=== PATIENT | female | born 1955 | race Caucasian/White ===

== ENCOUNTER 2017-05-03 10:54 | Inpatient (IN) ==
--- NOTE | 2017-05-03 11:40 | Diag Imaging Result Doc PS360 ---
EXAM: CHEST-PORTABLE HISTORY: stroke like symptoms TECHNIQUE: AP portable at 1136 COMMENT: There are no previous studies. There is an apparent granuloma in the right base. There is no evidence of acute cardiac or pulmonary disease. IMPRESSION: No acute disease. Electronically signed by Jarocho Stahl 05/03/2017 11:38 AM
[2017-05-03 12:34] LABS: URINE CULTURE NEEDED? NO; URINE MICRO REVIEW NEEDED? NO; URINE SOURCE CLEAN CATCH
[2017-05-03 12:39] LABS: BILIRUBIN URINE NEGATIVE (NEGATIVE); BLOOD URINE NEGATIVE (NEGATIVE); COLOR STRAW; GLUCOSE URINE NEGATIVE (NEGATIVE); LEUKOCYTES URINE NEGATIVE (NEGATIVE); NITRITE URINE NEGATIVE (NEGATIVE); PROTEIN URINE NEGATIVE (NEGATIVE); SP GRAVITY URINE 1.004; TURBIDITY URINE CLEAR (CLEAR); UR EPITHELIAL CELLS <10 /HPF (<10); URINE BACTERIA NEGATIVE /HPF; URINE RBC <10 /HPF (<10); URINE WBC <10 /HPF (<10); UROBILINOGEN URINE NORMAL (NORMAL)
--- NOTE | 2017-05-03 12:51 | EKG Report ---
Test Performed on : 05/03/2017 11:06:45 AM Test Reason : Stroke like symptoms Blood Pressure : / mmHG Vent. Rate : 070 BPM Atrial Rate : 070 BPM P-R Int : 120 ms QRS Dur : 086 ms QT Int : 402 ms P-R-T Axes : 039 017 012 degrees QTc Int : 434 ms Normal sinus rhythm. Normal ECG No previous ECGs available Unconfirmed Result
[2017-05-03 12:55] LABS: MANUAL DIFF NEEDED? NO
[2017-05-03 13:10] LABS: INR 0.99; PROTIME 10.4 Seconds (9.2-11.7); PTT 28.6 Seconds (22.0-36.0)
--- NOTE | 2017-05-03 13:12 | Diag Imaging Result Doc PS360 ---
EXAM: HEAD W/O CONTRAST HISTORY: MONTOYA- stroke like symptom TECHNIQUE: Dose reduction protocol COMPARISON: None. FINDINGS: No parenchymal hemorrhage. No epidural or subdural hematoma. No subarachnoid hemorrhage. No mass identified on this noncontrasted exam. No hydrocephalus. No sinus opacification. IMPRESSION: No hemorrhage. Negative brain CT without contrast. Electronically signed by Lobo Mccall 05/03/2017 1:10 PM
[2017-05-03 13:19] LABS: BASO% 0.4 % (0.0-0.8); EOS# 0.23 X1000 (0.0-0.7); EOS% 4.4 % (0.0-10.0); HEMATOCRIT 40.3 % (37.0-47.0); HEMOGLOBIN 13.4 g/dL (12.0-16.0); LYMPH# 1.72 X1000 (1.2-3.4); LYMPH% 33.3 % (20.5-51.1); MCH 29.8 PG (27-31); MCHC 33.3 g/dL (33-37); MCV 89.8 FL (81-99); MONO# 0.46 X1000 (0.11-0.59); MONO% 8.9 % (1.7-9.3); MPV 9.6 FL (7.4-10.4); PLT 249 X1000 (130-400); RBC 4.49 XMIL (4.2-5.4)
[2017-05-03 13:35] LABS: AGAP 11; ALBUMIN 3.8 g/dL (3.5-5.0); ALKALINE PHOSPHATASE 97 U/L (32-104); BUN 15 mg/dL (8-22); CALCIUM 9.4 mg/dL (8.8-10.2); CHLORIDE 107 mmol/L (98-107); COSMO 282; GOT 19 U/L (10-30); GPT 14 U/L (10-36); POTASSIUM 4.1 mmol/L (3.5-5.1); SODIUM 141 mmol/L (136-145); TCO2 23 mmol/L (25-35); TOTAL BILIRUBIN 0.61 mg/dL (0.20-1.00); TOTAL PROTEIN 6.5 g/dL (6.3-8.3)
[2017-05-03 13:43] LABS: UR AMPHETAMINES QUAL NONE DETECTED (NONE DETECT); UR BARBITUATES QUAL NONE DETECTED (NONE DETECT); UR BENZODIAZEPIN QUAL NONE DETECTED (NONE DETECT); UR CANNABINOIDS QUAL NONE DETECTED (NONE DETECT); UR COCAINE QUAL NONE DETECTED (NONE DETECT); UR METHADONE QUAL NONE DETECTED (NONE DETECT); UR OPIATES QUAL NONE DETECTED (NONE DETECT); UR OXYCODONE QUAL NONE DETECTED (NONE DETECT); UR PCP QUAL NONE DETECTED (NONE DETECT)
--- NOTE | 2017-05-03 13:54 | PROVIDER DOCUMENTATION ---
This chart was entered by Caroline Crawford Scribe, acting as scribe for Gilbert Hsu MD. HPI-Neurological Disorder - General Chief Complaint: Stroke-Like Symptoms Stated Complaint: NUMBNESS/CONFUSION Time Seen by Provider: 05/03/17 11:02 Source: patient Allergies/Adverse Reactions: Patient Allergies Allergy/AdvReac Type Severity Reaction Status Date / Time codeine Allergy NAUSEA/VOMI Verified 10/26/16 09:58 TING morphine Allergy NAUSEA/VOMI Verified 10/26/16 09:58 TING Home Medications: Home Medication List Medication Instructions Recorded Confirmed Last Taken Type Benazepril HCl 40 mg PO DAILY 10/17/16 05/03/17 05/02/17 History Gabapentin 1,600 mg PO HS 10/17/16 05/03/17 05/02/17 History Insulin Glargine [Lantus] 10 unit SUBQ DAILY 10/17/16 05/03/17 05/03/17 History Quetiapine Fumarate [Seroquel] 300 mg PO HS 10/17/16 05/03/17 05/02/17 History - History of Present Illness-Neuro Nature of Presenting Problem: 62 yo F presents to the ER with complaint of R sided weakness and feeling unsteady on her feet, onset yesterday. States she has a slight frontal MONTOYA and some intermittent facial numbness for a couple weeks. Denies any vision changes. Headache Location: reports: frontal Onset/Duration: reports: 24 hours ago New weakness or altered sensation location:: reports: RUE, RLE Cognitive Baseline: alert, oriented x3 Gait Baseline: walks without assistance Associated Symptoms: reports: headache, trouble walking. denies: fever/chills, vision changes Review of Systems - Adult - REVIEW OF SYSTEMS - ADULT Constitutional: denies: chills, fever Eyes: reports: no symptoms reported Ears, Nose, Mouth & Throat: reports: no symptoms reported Cardiovascular: denies: chest pain, palpitations Respiratory: denies: cough, shortness of breath Gastrointestinal: denies: diarrhea, nausea, vomiting Genitourinary: reports: no symptoms reported Musculoskeletal: denies: joint pain, joint swelling Integumentary: reports: no symptoms reported Neurological: reports: see HPI, headache/migraines. denies: slurred speech Psychiatric: reports: no symptoms reported Endocrine: reports: no symptoms reported Hematologic/Lymphatic: reports: no symptoms reported Allergic/Immunologic: reports: no symptoms reported All Other Systems: Reviewed and Negative Past History - Adult - PAST MEDICAL HISTORY-ADULT Review of Records: reports: Nursing Assessment Review, Medications Reviewed Cardiovascular: reports: HTN, hyperlipidemia Respiratory: reports: sleep apnea Musculoskeletal: reports: intervertebral disc disease Endocrine/Immune: reports: Diabetes - IMMUNIZATION STATUS Childhood Immunizations: See Nurse Assessment Flu Vaccine: See Nurse Assessment Physical Exam- Neurological - Physical Exam-Neuro Initial Vital Signs Reviewed: Yes General Appearance: alert, no apparent distress Eye Exam: bilateral eye: normal inspection, PERRL, EOMI HENMT: normocephalic/atraumatic, normal ENT inspection, TMs normal, pharynx normal Head Injury: no evidence of injury. negative: tenderness Neck: supple, normal inspection Respiratory: chest non-tender, lungs clear, no respiratory distress, no accessory muscle use Cardiovascular: normal peripheral pulses, regular rate, rhythm Extremity: normal range of motion, non-tender, normal gait, normal inspection server security administrator Exam: normal hearing, normal speech, PERRL Motor/Sensory: no motor deficit, no sensory deficit, no pronator drift, other ( weakness while sitting up) Neurologic: server security administrator II-XII nml as tested, grossly normal, no motor/sensory deficits Integumentary: normal color, warm/dry Psych/Mental Status: normal mood/affect, normal thought content, normal thought process, oriented x 3 Progress - PLAN OF CARE/RESULTS Progress/Plan/Lab Results: Vital Signs - 8 hr 05/03/17 10:57 Temperature 97.7 F Pulse Rate 88 Respiratory Rate 18 Blood Pressure 137/82 O2 Sat by Pulse Oximetry 100 Laboratory Results - last 24 hr 05/03/17 05/03/17 05/03/17 11:43 12:00 12:00 WBC RBC Hgb Hct MCV MCH MCHC RDW Std Deviation Plt Count MPV Neut % (Auto) Lymph % (Auto) Starke % (Auto) Eos % (Auto) Baso % (Auto) Neut # (Auto) Lymph # (Auto) [place] # (Auto) Eos # (Auto) Baso # (Auto) PT INR PTT (Actin FS) Sodium Potassium Chloride Carbon Dioxide Anion Gap BUN Creatinine Estimated GFR/1.73 m2 BUN/Creatinine Ratio Glucose POC Glucose 100 Calculated Osmolality Calcium Total Bilirubin AST ALT Alkaline Phosphatase Troponin T Total Protein Albumin Globulin Albumin/Globulin Ratio Urine Source CLEAN CATCH Urine Color STRAW Urine Turbidity CLEAR Urine pH 6.0 Ur Specific [place] 1.004 Urine Protein NEGATIVE Ur Glucose (Stick) NEGATIVE Ur Ketones (Stick) NEGATIVE Urine Blood NEGATIVE Urine Nitrite NEGATIVE Urine Bilirubin NEGATIVE Urobilinogen Dipstick NORMAL Urine Leukocytes NEGATIVE Urine WBC (Auto) <10 Urine RBC (Auto) <10 U Epithel Cells (Auto) <10 Urine Bacteria (Auto) NEGATIVE Urine Opiates Screen NONE DETECTED Ur Oxycodone Screen NONE DETECTED Ur Methadone, Qual NONE DETECTED Ur Barbiturates Screen NONE DETECTED Ur Phencyclidine Scrn NONE DETECTED Ur Amphetamines Screen NONE DETECTED U Benzodiazepines Scrn NONE DETECTED Urine Cocaine Screen NONE DETECTED U Cannabinoids Screen NONE DETECTED 05/03/17 05/03/17 05/03/17 12:47 12:47 12:47 WBC 5.17 RBC 4.49 Hgb 13.4 Hct 40.3 MCV 89.8 MCH 29.8 MCHC 33.3 RDW Std Deviation 13.2 Plt Count 249 MPV 9.6 Neut % (Auto) 53.0 Lymph % (Auto) 33.3 Starke % (Auto) 8.9 Eos % (Auto) 4.4 Baso % (Auto) 0.4 Neut # (Auto) 2.74 Lymph # (Auto) 1.72 Starke # (Auto) 0.46 Eos # (Auto) 0.23 Baso # (Auto) 0.02 PT 10.4 INR 0.99 PTT (Actin FS) 28.6 Sodium 141 Potassium 4.1 Chloride 107 Carbon Dioxide 23 L Anion Gap 11 BUN 15 Creatinine 0.9 Estimated GFR/1.73 m2 > 60 BUN/Creatinine Ratio 17 Glucose 103 POC Glucose Calculated Osmolality 282 Calcium 9.4 Total Bilirubin 0.61 AST 19 ALT 14 Alkaline Phosphatase 97 Troponin T Total Protein 6.5 Albumin 3.8 Globulin 2.7 Albumin/Globulin Ratio 1.4 Urine Source Urine Color Urine Turbidity Urine pH Ur Specific [place] Urine Protein Ur Glucose (Stick) Ur Ketones (Stick) Urine Blood Urine Nitrite Urine Bilirubin Urobilinogen Dipstick Urine Leukocytes Urine WBC (Auto) Urine RBC (Auto) U Epithel Cells (Auto) Urine Bacteria (Auto) Urine Opiates Screen Ur Oxycodone Screen Ur Methadone, Qual Ur Barbiturates Screen Ur Phencyclidine Scrn Ur Amphetamines Screen U Benzodiazepines Scrn Urine Cocaine Screen U Cannabinoids Screen 05/03/17 12:47 WBC RBC Hgb Hct MCV MCH MCHC RDW Std Deviation Plt Count MPV Neut % (Auto) Lymph % (Auto) [place] % (Auto) Eos % (Auto) Baso % (Auto) Neut # (Auto) Lymph # (Auto) [place] # (Auto) Eos # (Auto) Baso # (Auto) PT INR PTT (Actin FS) Sodium Potassium Chloride Carbon Dioxide Anion Gap BUN Creatinine Estimated GFR/1.73 m2 BUN/Creatinine Ratio Glucose POC Glucose Calculated Osmolality Calcium Total Bilirubin AST ALT Alkaline Phosphatase Troponin T < 0.010 Total Protein Albumin Globulin Albumin/Globulin Ratio Urine Source Urine Color Urine Turbidity Urine pH Ur Specific [place] Urine Protein Ur Glucose (Stick) Ur Ketones (Stick) Urine Blood Urine Nitrite Urine Bilirubin Urobilinogen Dipstick Urine Leukocytes Urine WBC (Auto) Urine RBC (Auto) U Epithel Cells (Auto) Urine Bacteria (Auto) Urine Opiates Screen Ur Oxycodone Screen Ur Methadone, Qual Ur Barbiturates Screen Ur Phencyclidine Scrn Ur Amphetamines Screen U Benzodiazepines Scrn Urine Cocaine Screen U Cannabinoids Screen Orders Category Date Time Status Cardiac Monitoring DIRECTED Care 05/03/17 11:16 Active Finger Stick Blood Sugar (ED) DIRECTED Care 05/03/17 11:16 Active Saline Loc NOW Care 05/03/17 11:16 Active CHEST-PORTABLE [RAD] Stat Exams 05/03/17 11:16 Completed HEAD W/O CONTRAST [CT] Stat Exams 05/03/17 13:00 Completed CBC WITH ELECTRONIC DIFF [HEME] Stat Lab 05/03/17 12:47 Completed COMPREHENSIVE METABOLIC PANEL [CHEM] Stat Lab 05/03/17 12:47 Completed PROTIME WITH INR [COAG] Stat Lab 05/03/17 12:47 Completed PTT [COAG] Stat Lab 05/03/17 12:47 Completed TROPONIN T Stat Lab 05/03/17 12:47 Completed URINALYSIS W/POSS RFLX CULT-1 [URINALYSIS] Stat Lab 05/03/17 12:00 Completed URINE DRUG SCREEN Stat Lab 05/03/17 12:00 Completed EKG [EKG] Stat Ther 05/03/17 11:16 Draft Result Diagrams: 05/03/17 12:47 05/03/17 12:47 - REASSESSMENT Reassessment #1 Time Reassessed: 13:50 (mild ataxia on ambulation, says is better than was) - EKG 1 Time of EKG reading by physician:: 11:06 EKG Read and Signed by:: Gilbert Hsu EKG Interpretation (*Must complete 3 of following elements*): Normal Rate: 70 Rhythm: normal sinus rhythm Partridge: normal QRS: normal MA Interval: normal ST Wave: normal - XRAY 1 XRAY Study: Chest Impression: Normal (no acute disease, per radiologist) - CONSULTS/PCP/HOSPITALIST Notification #1 *Consult/PCP/Hospitalist*: Eris Time Discussed: 13:53 Consult Disposition: Admit Departure - Departure Date of Disposition Decision: 05/03/17 Time of Disposition Decision: 13:53 DIAGNOSIS: Transient ischemic attack Qualifiers: Transient cerebral ischemia type: unspecified Qualified Code(s): G45.9 - Transient cerebral ischemic attack, unspecified Disposition: ADMITTED INPATIENT 09 Certified Medical Emergency: Emergent Condition: Good Referrals and Follow-Ups: Ok Schulte MD [Primary Care Provider] - - Critical Care Note This patient required my direct & personal management of CC.: No This chart was documented by the indicated scribe, (Caroline Crawford Scribe) and accurately reflects the services I performed and decisions made by me, Gilbert Hsu MD, as attested by the provider's signature.
[2017-05-03] MEDS ORDERED: NS 1,000 ML IV ONE (13:55)
[2017-05-03] MEDS ORDERED: HUMULIN R SUBQ SCH (16:00)
--- NOTE | 2017-05-03 18:21 | HISTORY AND PHYSICAL ---
CHIEF COMPLAINT: Right-sided weakness since yesterday, slowly worsening. HISTORY OF PRESENT ILLNESS: She is a 62-year-old, white female, was evaluated in our clinic this morning with right-sided weakness. She is complaining of tingling and numbness on the right side of the face and right arm more weaker than the leg. She is unable to walk. It looks funny. She denies any vision problems. She has some neck pain. Had a workup done last month in my office. C-spine x-ray is negative. She was sent to hospital for CT head. After CT, she was not able to walk into the emergency room. Patient was evaluated in the ER. She has slight weakness in the right hand high man. No speech problems noted. Basically, admitted to the hospital for TIA, rule out CVA. There is no contraindication for MRI, as a result, hospital admission was warranted. PAST MEDICAL HISTORY: Overactive bladder. Type 2 diabetes, metabolic syndrome, hyperlipidemia, hypertension, sleep apnea. PAST SURGICAL HISTORY: Appendectomy, back surgery. Bilateral knee replacement. InterStim placement, Dr. Uribe in 2017 in [place]. MEDICATIONS: Are in my office. Synthroid 122 mg tablet daily. Benazepril 40 mg daily, Neurontin 800 b.i.d., Seroquel 300 daily, trazodone 150 daily. ALLERGIES: Codeine and morphine. SOCIAL HISTORY: Lives in [place]. No smoking. No alcohol. No drug abuse. Single. No children. FAMILY HISTORY: Father of lung cancer at 50. Mom of hypertension, heart disease at the age of 70. REVIEW OF SYSTEMS: HEENT: No headache. No vision problem. No speech impediments. No earache. Neck: Neck pain on the left side mostly. CT neck was negative recently. Cardiopulmonary: No chest pain, shortness of breath, PND, orthopnea. No palpitations. : History of overactive bladder symptoms, better after the InterStim. GI: No nausea, vomiting, abdominal pain. Extremities: No swelling of legs. Both knees were replaced and back pain. Neurologic: No headaches, dizziness, seizures, weakness in the right side of the body, mostly on the right side. Endocrine: History of diabetes, stopped Invokana. PHYSICAL EXAMINATION: VITAL SIGNS: She is afebrile. Temperature is 98.3, blood pressure 140/72 on room air 97%. 5 feet 8 inches, 260 pounds. HEENT: Atraumatic, normocephalic. Pupils equal, reactive to light. TMs are normal. Nose and throat within normal limits. Facial nerve is intact. NECK: Supple. No lymphadenopathy. JVD is normal. No carotid bruit noted. CHEST: Bilateral air entry. HEART: Sounds are regular. No murmurs. ABDOMEN: Belly is soft, obese, nontender. Good bowel sounds. No masses palpable. EXTREMITIES: No peripheral edema, cyanosis, clubbing. Scar seen in both knees. NEURO: Alert, oriented to time, place, and person. Motor 4/5 on the right side with hand high man. No cerebellar signs. No meningeal signs. No obvious deficits noted except slight weakness on the right hand. INVESTIGATIONS: CBC: White cell count 5, hematocrit 40, platelets 249. PT/INR is normal. SMA-7 was normal. LFTs were normal. Cardiac enzymes were normal. Urinalysis clear. Urine toxic screen is negative. CT head negative. Chest x-ray, no acute disease. EKG normal sinus. Previous workup: CT of cervical spine 04/09/2017, no acute bony abnormality noted. ASSESSMENT AND PLAN: 1. A 62-year-old white female, admitted to the hospital basically with right-sided weakness. Rule out possible cerebrovascular accident. Plan is aspirin, carotid Dopplers and MRI of the brain. I do not see any contraindication. 2. Type 2 diabetes. Stable. Check the A1c. Currently on insulin sliding scale. Stopped the Invokana due to recurrent urinary tract infection. 3. Overactive bladder. Status post InterStim treatment. 4. Chronic neck pain. CT C-spine is unremarkable on 04/09/2017. 5. Deep vein thrombosis prophylaxis with Lovenox. 6. Bilateral knee replacement. 7. Chronic pain on Neurontin. 8. Hypertension on Lotensin 40 mg daily. 9. Hyperlipidemia on Lipitor 40 mg daily. 10. Hypothyroidism on [place] Thyroid 120 mg daily. 11. Chronic insomnia on Seroquel and trazodone. HEALTH MAINTENANCE: Pneumococcal vaccine in 2016 and influenza vaccine in 2015. Last mammography 11/2015. Colonoscopy 2009. We will follow up. cc: Nate Schulte MD
[2017-05-03] MEDS: HUMULIN R SUBQ SCH (20:35)
[2017-05-03] MEDS: SEROQUEL PO SCH (20:35)
[2017-05-03] MEDS: LOVENOX SUBQ SCH (20:36)
[2017-05-03] MEDS: NEURONTIN PO SCH (20:36)
[2017-05-03] MEDS: LIPITOR PO SCH (20:36)
[2017-05-03] MEDS: ZOFRAN PO PRN (20:45)
[2017-05-04] MEDS: HUMULIN R SUBQ SCH ×3 (06:19→17:36)
[2017-05-04 06:37] LABS: AGAP 9; ALBUMIN 3.4 g/dL (3.5-5.0); ALKALINE PHOSPHATASE 90 U/L (32-104); BUN 17 mg/dL (8-22); CALCIUM 8.8 mg/dL (8.8-10.2); CHLORIDE 108 mmol/L (98-107); COSMO 282; GOT 17 U/L (10-30); GPT 13 U/L (10-36); HDL 46 mg/dL (45-65); LDL 100 mg/dL; SODIUM 140 mmol/L (136-145); TCO2 23 mmol/L (25-35); TOTAL PROTEIN 5.6 g/dL (6.3-8.3); TRIGLYCERIDES 124 mg/dL (35-135); VLDL 25 mg/dL
[2017-05-04 06:42] LABS: HEMOGLOBIN A1C 5.6 % (4.8-6.0)
[2017-05-04] MEDS: THYROID PO SCH (10:00)
[2017-05-04] MEDS: ASPIRIN PO SCH (10:01)
[2017-05-04] MEDS: LANTUS SUBQ SCH (10:12)
--- NOTE | 2017-05-04 12:31 | PROGRESS NOTE ---
DATE: 05/04/2017 SUBJECTIVE: The patient is complaining of back and neck pain. She was scheduled to go to [facility] on Saturday as an outpatient because of her neck, but had this occurrence where she had right- sided body weakness and she says she had some right-sided facial weakness, though I do not see any evidence of that now. She is weak in the right lower extremity and right upper extremity. She most likely has had a CVA. Dr. Schulte ordered an MRI scan of her head without contrast to be done today, but unless it is an emergency, it probably will not be done until Saturday. She does have a stimulator for her bladder in and sometimes those have to be removed to have an MRI scan of brain, but we will talk with Radiology and see what they say. She has also had bilateral knee replacement, apparently, and she mentioned that to me. OBJECTIVE: Vital Signs: Blood pressure 122/75, respirations 20, pulse 64, temperature 98.1 degrees. HEENT: She is normocephalic. Intact PERRLA. Throat clear. Lungs: Clear to auscultation and percussion, without rhonchi, rales, or wheezes. Heart: Regular rate and rhythm, without murmurs, gallops, or friction rubs. Abdomen: Soft. Active bowel sounds. No organomegaly or tenderness. 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 It is about a 2 out of 5. She has some weakness of her right lower extremity, but she can raise her leg with difficulty. I do not see any facial weakness at this point. ASSESSMENT: 1. Cerebrovascular accident. 2. Muscle spasm and pain. PLAN: We will give her something for pain. We will do the MRI scan when possible if feasible. cc: MD Nate Farley Jr, MD MTDD
[2017-05-04] MEDS: NORCO-10 PO PRN ×2 (13:00→20:28)
[2017-05-04] MEDS: LOVENOX SUBQ SCH (17:35)
[2017-05-04] MEDS: SEROQUEL PO SCH (22:11)
[2017-05-04] MEDS: NEURONTIN PO SCH (22:11)
[2017-05-04] MEDS: LIPITOR PO SCH (22:11)
[2017-05-05] MEDS: HUMULIN R SUBQ SCH ×5 (01:29→21:17)
[2017-05-05] MEDS: NORCO-10 PO PRN ×2 (06:22→13:15)
[2017-05-05] MEDS: THYROID PO SCH (09:59)
[2017-05-05] MEDS: ASPIRIN PO SCH (09:59)
[2017-05-05] MEDS: LANTUS SUBQ SCH (10:10)
--- NOTE | 2017-05-05 12:06 | PROGRESS NOTE ---
DATE: 05/05/2017 SUBJECTIVE: The patient says she feels about the same. Her back and neck pain are better with the pain medication I gave her. She is concerned that her condition has not resolved yet and I explained to her that it often takes a little longer for a CVA to resolve. I actually think that she is moving her right hand much better. She has had weakness in her right hand and her right leg and she said that she initially had some facial weakness though I do not see any of that at this time. OBJECTIVE: Vital Signs: Blood pressure 104/69, respirations 20, pulse is 66, temperature 97.5 degrees Fahrenheit. O2 saturation is 96% on room air. HEENT: She is normocephalic. EOMs Intact. PERRLA. Throat clear. She has a good sensation on both sides of her face and they are equal. See no facial weakness when she grimaces or when she smiles. Neck: Supple. Lungs: Clear to auscultation and percussion without rhonchi, rales, or wheezes. Heart: Regular rate and rhythm without murmurs, gallops, or friction rubs. Abdomen: Soft. Active bowel sounds. No organomegaly or tenderness. Neurological: Shows weakness in her right log peeler and right leg, but I do believe her right log peeler has improved since yesterday. She seems to have fairly good motor ability with her right hand. 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 I think that she is already showing some improvement. ASSESSMENT: 1. Cerebrovascular accident. 2. Muscular pain in neck and back improved. 3. Adult onset diabetes mellitus. 4. Hypothyroidism. PLAN: Continue treatment. MRI scan of the head is ordered. cc: MD Nate Farley Jr, MD
[2017-05-05] MEDS: LOVENOX SUBQ SCH (17:31)
[2017-05-05] MEDS: ZOFRAN PO PRN (18:53)
[2017-05-05] MEDS: LIPITOR PO SCH (21:17)
[2017-05-05] MEDS: SEROQUEL PO SCH (21:17)
[2017-05-05] MEDS: NEURONTIN PO SCH (21:17)
[2017-05-06] MEDS: THYROID PO SCH (09:52)
[2017-05-06] MEDS: NORCO-10 PO PRN ×2 (09:53→15:41)
[2017-05-06] MEDS: ASPIRIN PO SCH (09:53)
[2017-05-06] MEDS: LANTUS SUBQ SCH (09:54)
[2017-05-06] MEDS: HUMULIN R SUBQ SCH ×4 (09:56→20:58)
--- NOTE | 2017-05-06 10:24 | Diag Imaging Result Doc PS360 ---
EXAM: MRI BRAIN W/O CONTRAST HISTORY: cva TECHNIQUE: MRI of the brain: T1 sagittal and axial, T2 and flair axial, DWI axial, gradient echo coronal. COMMENT: There is no evidence of restricted diffusion, bleed or abnormal extra-axial fluid collection. There is no evidence of mass. There is minimal periventricular T2 hyperintensity in the centrum semiovale region on the left. IMPRESSION: Minimal chronic microvascular white matter disease. No evidence of acute infarct or other acute intracerebral abnormality. Electronically signed by Jarocho Stahl 05/06/2017 10:22 AM
[2017-05-06] MEDS: LOVENOX SUBQ SCH (17:06)
--- NOTE | 2017-05-06 18:53 | PROGRESS NOTE ---
DATE: 05/06/2017 SUBJECTIVE: The patient is complains of weakness in the right side. Unable to get an IV access. She has InterStim. Discussed with the oil change technician they can do the MRI of the head. REVIEW OF SYSTEMS: None reported, other than weakness on the right side. I O: -1.0 liter. OBJECTIVE: HEENT Examination: Within normal limits. Neck: Supple. Chest: Clear. Heart: Sounds are regular. Abdomen: Belly is soft, nontender. Good bowel sounds. 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 Upper motor neuron facial nerve is intact. LABORATORIES: CBC is normal. SMA 7 is normal. LFTs were normal. Urinalysis is clear. ASSESSMENT AND PLAN: 1. Right-sided weakness. Rule out cerebrovascular accident. Follow up on MRI of the brain. 2. Chronic neck pain. CT of C-spine is negative. Seeing Dr. Cassidy in couple of weeks. 3. Deep venous thrombosis prophylaxis with Lovenox. 4. Overactive bladder, status post InterStim placement. 5. Type 2 diabetes, stable. 6. Poor IV access. Hold on the PICC line. 7. Normal thyroid on Synthroid. Continue physical therapy. Based on the MRI further recommendations will be followed. LEVEL OF DOCUMENTATION: Was 25 minutes. cc: Ntae Schulte MD
--- NOTE | 2017-05-06 18:54 | Carotid Study ---
DATE: 05/03/2017 PROCEDURE: Carotid duplex imaging. REFERRING PHYSICIAN: Dr. Schulte INTERPRETING PHYSICIAN: Dr. Adan TECH: [place] INDICATIONS: The patient has syncope and right-sided weakness. OBSERVED DATA RIGHT LEFT Brachial Blood Pressure Carotid Pulse Bruits: Carotid/Sub DIAGRAM OF ULTRASOUND IMAGING R L RIGHT INT EXT INT EXT LEFT Jason (cm/s) Jason (cm/s) Subclavian 56/0 Subclavian 64/10 CCA Proximal 70/24 CCA Proximal 70/15 CCA Distal 61/18 CCA Distal 56/15 Bulb 50/17 Bulb 61/22 ICA Proximal 46/18 ICA Proximal 67/25 ICA Mid 78/30 ICA Mid 72/23 ICA Distal 84/30 ICA Distal 94/41 ECA 38/6 ECA 38/7 Vertebral Antegrade, 34/0 Vertebral Antegrade, 42/15 ICA/CCA Ratio 1.2 ICA/CCA Ratio 1.3 % Stenosis 0-39 % Stenosis 0-39 FINDINGS: No significant plaque is identified. PHYSICIAN INTERPRETATION: No significant plaque disease identified. There is antegrade vertebral flow bilaterally. cc: MD Nate Butt MD
[2017-05-06] MEDS: LIPITOR PO SCH (20:55)
[2017-05-06] MEDS: NEURONTIN PO SCH (20:55)
[2017-05-06] MEDS: SEROQUEL PO SCH (20:55)
[2017-05-07] MEDS: NORCO-10 PO PRN ×2 (03:29→12:18)
[2017-05-07 05:13] VITALS: BP 105/58
[2017-05-07] MEDS: HUMULIN R SUBQ SCH ×2 (06:42→11:52)
[2017-05-07] MEDS ORDERED: INSULIN PEN NEEDLES ONE (07:09)
[2017-05-07] MEDS: THYROID PO SCH (08:00)
[2017-05-07] MEDS: LANTUS SUBQ SCH (08:01)
[2017-05-07] MEDS: ASPIRIN PO SCH (08:01)
--- NOTE | 2017-05-07 22:53 | DISCHARGE SUMMARY ---
ADMISSION DATE: 05/03/2017 DISCHARGE DATE: 05/07/2017 DISCHARGING DIAGNOSIS: Right-sided weakness etiology to be determined. SECONDARY DIAGNOSIS: 1. Overactive bladder. 2. Type 2 diabetes. 3. Metabolic syndrome. 4. Hyperlipidemia . 5. Hypertension. 6. Sleep apnea. BRIEF HISTORY: Please see the H and P that was done on 05/03/2017. In brief she is a 62-year-old white female presented to the emergency room with weakness on the right side, unable to walk. Patient also has a neck pain. She had outpatient workup done. CT was negative. Waiting to be seen by Dr. Cassidy. She did not have any facial involvement other than some tingling and numbness. She was admitted on Saturday for rule out CVA. HOSPITAL COURSE: She was given physical therapy and no speech impediments or swallowing difficulties. Patient unable to ambulate. Further workup carotid Dopplers were negative. MRI of the brain did not show any evidence of stroke. She thinks her neck is causing the problem, we are not able to do the MRI of the C-spine due to underlying InterStim. Patient has been referred to Dr. Cassidy as an outpatient. Rest of the hospital course was pretty much uneventful. LABS: CBC. White cell count 5.1, hematocrit 40, platelets 249,000. PT/INR is normal. SMA 7, LFTs were normal. Cholesterol 171, HDL 46, LDL is 100, B12 507. Urinalysis is clear. Urine toxic screen was negative. RADIOLOGY PROCEDURES: MRI of the brain no evidence of stroke, carotid Dopplers no hemodynamic stenosis in either internal carotid system. She had an outpatient imaging CT of the neck on 04/09/2017. It did not show any significant bony abnormality or myelopathy signs. DISCHARGE INSTRUCTIONS: Outpatient follow up with Dr. Cassidy next week, Seroquel 300 daily, gabapentin 800 mg p.o. b.i.d., Lantus 10 units at 9 p.m., benazepril 40 daily, aspirin 81 mg daily, Lipitor 40 daily, [place] as needed for pain, [place] Thyroid 120 mg daily and follow up in my office in 2 weeks as well as Dr[address] Cassidy and based on Dr. Cassidy will follow his recommendations and patient has been reassured. cc: Nate Schulte MD
== END 2017-05-07 13:24 | disposition home or self-care (01) ==
LOC: ED 10:54 → 3N 16:22
PROVIDERS: ADMIT Internal Medicine; ATTEND Internal Medicine

== ENCOUNTER 2019-12-19 10:43 | Inpatient (IN) ==
[2019-12-19] MEDS ORDERED: LEVAQUIN 500 MG/D5W 500 MG/100 ML IVPB IV SCH (12:00)
[2019-12-19] MEDS ORDERED: SOLU-MEDROL IV SCH (12:00)
--- NOTE | 2019-12-19 12:56 | Diag Imaging Result Doc PS360 ---
EXAM: CHEST-PORTABLE HISTORY: dyspnea TECHNIQUE: Single view COMPARISON: 10/25/2018 FINDINGS: Poor inspiratory effort. The heart is not enlarged. The vessels are not distended. There are no infiltrates. No effusion identified. IMPRESSION: Negative exam. Electronically signed by Lobo Mccall 12/19/2019 12:53 PM
[2019-12-19 14:14] LABS: URINE SOURCE CLEAN CATCH
[2019-12-19 14:17] LABS: BILIRUBIN URINE NEGATIVE (NEGATIVE); BLOOD URINE NEGATIVE (NEGATIVE); COLOR YELLOW; GLUCOSE URINE NEGATIVE (NEGATIVE); KETONE URINE NEGATIVE (NEGATIVE); LEUKOCYTES URINE SMALL (NEGATIVE); NITRITE URINE NEGATIVE (NEGATIVE); PROTEIN URINE TRACE mg/dL (NEGATIVE); SP GRAVITY URINE 1.025; TURBIDITY URINE CLEAR (CLEAR); UR EPITHELIAL CELLS <10 /HPF (<10); URINE BACTERIA NEGATIVE /HPF; URINE RBC <10 /HPF (<10); URINE WBC <10 /HPF (<10); UROBILINOGEN URINE NORMAL (NORMAL)
--- NOTE | 2019-12-19 14:55 | HISTORY AND PHYSICAL ---
CHIEF COMPLAINT: Cough and chest congestion. HISTORY OF PRESENT ILLNESS: This is a 64-year-old female, who was sent after failed outpatient therapy for pneumonia. Currently, the patient has been having worsening cough and chest congestion, along with chest tightness, and was diagnosed as having pneumonia 2 days ago, for which she was given oral antibiotics, but she failed to improve. Therefore, was sent to the hospital for inpatient treatment. The patient denies having any fever or any other complaints. She states that she is a hard stick and has always required PICC line placement; therefore, declines for any IV access otherwise. PAST MEDICAL HISTORY: 1. Diet-controlled type 2 diabetes mellitus. 2. 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 3. Insomnia. 4. Recurrent urinary tract infections. 5. Peripheral neuropathy. PAST SURGICAL HISTORY: 1. Back surgery. 2. Bilateral total knee arthroplasty. 3. History of appendectomy. FAMILY HISTORY: Noncontributory. SOCIAL HISTORY: Patient does not smoke any tobacco products, nor does she drink any alcohol. She denies using any recreational drugs. She lives here in [place] with her partner. ALLERGIES: She reports to be allergic to codeine and morphine. MEDICATIONS: Current home medications include Eliquis, Seroquel, trazodone, gabapentin, Lasix, nitrofurantoin, Medrol Dosepak, along with Levaquin. REVIEW OF SYSTEMS: A full 14-point review of systems was obtained that was pretty much the same as already has been explained in the HPI. PHYSICAL EXAMINATION: VITAL SIGNS: Temperature 98.1 degrees, pulse 67 per minute, respiratory rate 18 per minute, blood pressure 127/70, pulse oximetry 99% on room air. GENERAL: Patient is alert and oriented x3. She does not appear to be in any acute distress. HEENT: Within normal limits. NECK: Supple without any thyromegaly. LYMPHATICS: No lymphadenopathy noted in the neck region. CHEST: Chest wall is nontender. CARDIOVASCULAR SYSTEM: First and second heart sounds are audible without any murmurs or gallops. RESPIRATORY SYSTEM: Bilateral lung air entries slightly decreased, but there are no rales or rhonchi present on auscultation. GASTROINTESTINAL SYSTEM: Abdomen is soft and nondistended. Normal bowel sounds are present. MUSCULOSKELETAL SYSTEM: No deformities are present. Range of motion is somewhat decreased all over secondary to osteoarthritis. NEUROLOGIC: No focal deficits are present. GENITOURINARY: Deferred. INTEGUMENTARY: Skin is warm, dry, and without any rash. IMPRESSION: 1. Pneumonia in this 64-year-old female, who has failed outpatient therapy. 2. History of diet-controlled type 2 diabetes mellitus. 3. Peripheral neuropathy. 4. History of pulmonary thromboembolism with right leg deep vein thrombosis for which she has been on chronic anticoagulant therapy. PLAN: The patient will be admitted to the medical floor and as aforementioned, will have a peripherally-inserted central catheter line placed. We are going to treat her with levofloxacin 750 mg IV every 24 hours and give her IV fluids. We will continue with her routine home medications and have labs including CBC, BMP and chest x-ray on admission. Further recommendations will be given as per hospital course. cc: MD Nate Davila MD
[2019-12-19] MEDS: DUONEB (A & A) INH SCH ×4 (15:30→23:17)
[2019-12-19] MEDS ORDERED: NS 250 ML ONE (16:40)
[2019-12-19 17:04] LABS: BASO# 0.01 X1000 (0.0-0.2); BASO% 0.2 % (0.0-0.8); EOS# 0.14 X1000 (0.0-0.7); EOS% 2.1 % (0.0-10.0); HEMATOCRIT 39.4 % (37.0-47.0); HEMOGLOBIN 12.7 g/dL (12.0-16.0); LYMPH# 2.15 X1000 (1.2-3.4); LYMPH% 32.6 % (20.5-51.1); MCH 28.4 PG (27-31); MCHC 32.2 g/dL (33-37); MCV 88.1 FL (81-99); MONO# 0.56 X1000 (0.11-0.59); MONO% 8.5 % (1.7-9.3); MPV 9.3 FL (7.4-10.4); NEUT# 3.74 X1000 (1.4-6.5); NEUT% 56.6 % (42.2-75.2); PLT 245 X1000 (130-400); RBC 4.47 XMIL (4.2-5.4); RDW 13.5 % (11.5-14.5)
[2019-12-19 17:12] LABS: INR 0.92; PROTIME 12.5 Seconds (11.0-16.0)
[2019-12-19 17:18] LABS: POTASSIUM 3.6 mmol/L (3.5-5.1)
[2019-12-19] MEDS: LEVAQUIN 750 MG/D5W 750 MG/150 ML IVPB IV SCH (18:51)
[2019-12-19] MEDS: NS 1,000 ML IV SCH ×2 (18:51→23:40)
[2019-12-19] MEDS: PROTONIX IV SCH (18:51)
[2019-12-19] MEDS: SEROQUEL PO SCH (20:26)
[2019-12-19] MEDS: DESYREL PO SCH (20:26)
[2019-12-19] MEDS: NEURONTIN PO SCH (20:26)
[2019-12-19] MEDS: ELIQUIS PO SCH (20:26)
[2019-12-19] MEDS: TESSALON PO PRN (21:27)
[2019-12-20] MEDS: DUONEB (A & A) INH SCH ×6 (03:52→23:01)
[2019-12-20] MEDS: ELIQUIS PO SCH ×2 (08:09→21:19)
[2019-12-20] MEDS: FLOMAX PO SCH (08:09)
[2019-12-20] MEDS: TESSALON PO PRN ×3 (08:11→22:26)
[2019-12-20] MEDS: PERCOCET-5 PO PRN ×4 (08:18→22:26)
[2019-12-20] MEDS: NS 1,000 ML IV SCH ×3 (08:49→22:29)
--- NOTE | 2019-12-20 09:00 | Diag Imaging Result Doc PS360 ---
EXAM: CHEST-2 VIEWS - 12/20/2019 HISTORY: hypoxia TECHNIQUE: Chest two views COMPARISON: 12/19/2019 portable chest FINDINGS: Heart size is normal. Inspiration is mildly shallow. There is mild atelectasis or infiltrate at the left base. The remainder of the lungs appear clear. There is no pleural effusion or pneumothorax identified. There is a PICC which enters from the right and has its tip at the distal superior vena cava. IMPRESSION: Mildly shallow inspiration. Mild atelectasis or infiltrate at left base. Electronically signed by Alvaro Castaneda 12/20/2019 8:57 AM
--- NOTE | 2019-12-20 12:08 | PROGRESS NOTE ---
DATE: 12/20/2019 SUBJECTIVE: Patient denies having any acute complaints this morning and feels better. OBJECTIVE: Vital Signs: Temperature 98.3 degrees, pulse 73 per minute, respiratory rate 12 per minute, blood pressure 111/56, pulse oximetry 98% on room air. General: Patient is alert and oriented x3. She does not appear to be in any acute distress. Cardiovascular System: First and second heart sounds are audible without any murmurs or gallops. Respiratory System: Bilateral lung air entry is good without any rales or rhonchi. Gastrointestinal System: Abdomen is soft and nondistended. Normal bowel sounds are present. Diagnostic Data: Labs from yesterday were reviewed, which appeared normal. She did have a chest x-ray done yesterday that did not show any infiltrate, although today's x-ray shows mild atelectasis or infiltrate at the left lung base. IMPRESSION: 1. Pneumonia. 2. Diet-controlled type 2 diabetes mellitus. 3. Peripheral neuropathy. PLAN: The patient will continue to receive levofloxacin IV along with routine supportive care. She will continue with apixaban since she has a history of deep vein thrombosis of lower extremities along with pulmonary thromboembolism in the past. Further care will be as per hospital course. cc: MD Nate Davila MD
[2019-12-20] MEDS: PROTONIX IV SCH (12:45)
[2019-12-20] MEDS: LEVAQUIN 750 MG/D5W 750 MG/150 ML IVPB IV SCH (12:46)
[2019-12-20] MEDS: PHENERGAN IV PRN ×3 (14:31→22:26)
[2019-12-20] MEDS: DESYREL PO SCH (21:19)
[2019-12-20] MEDS: SEROQUEL PO SCH (21:19)
[2019-12-20] MEDS: NEURONTIN PO SCH (21:21)
[2019-12-21] MEDS: DUONEB (A & A) INH SCH ×6 (03:36→22:24)
[2019-12-21] MEDS: PERCOCET-5 PO PRN (04:08)
[2019-12-21] MEDS: PHENERGAN IV PRN ×4 (04:09→21:51)
--- NOTE | 2019-12-21 08:50 | Diag Imaging Result Doc PS360 ---
EXAM: CHEST-2 VIEWS HISTORY: hypoxia TECHNIQUE: Two views COMPARISON: 12/20/2019 FINDINGS: The lungs are well expanded. The heart is not enlarged. The vessels are not distended. There are minimal increased markings in the left lung base. Trace pleural effusion. No change in the right-sided PICC line. IMPRESSION: Left basilar atelectasis versus a tiny infiltrate with trace pleural fluid. Electronically signed by Lobo Mccall 12/21/2019 8:48 AM
[2019-12-21] MEDS ORDERED: SODIUM CHLORIDE 0.9% 10 ML ONE (09:40)
[2019-12-21] MEDS: NS 1,000 ML IV SCH ×2 (09:44→22:17)
[2019-12-21] MEDS: TESSALON PO PRN ×2 (09:45→21:51)
[2019-12-21] MEDS: FLOMAX PO SCH (09:45)
[2019-12-21] MEDS: ELIQUIS PO SCH ×2 (09:45→21:50)
[2019-12-21] MEDS: ULTRACET 37.5MG/325MG PO PRN ×3 (09:47→21:50)
[2019-12-21] MEDS: PROTONIX IV SCH (11:58)
[2019-12-21] MEDS: SODIUM CHLORIDE 0.9% INJ SCH ×2 (11:58→15:59)
[2019-12-21] MEDS: LEVAQUIN 750 MG/D5W 750 MG/150 ML IVPB IV SCH (13:45)
[2019-12-21] MEDS: SEROQUEL PO SCH (21:50)
[2019-12-21] MEDS: DESYREL PO SCH (21:51)
[2019-12-21] MEDS: NEURONTIN PO SCH (21:51)
--- NOTE | 2019-12-21 22:02 | PROGRESS NOTE ---
DATE: 12/21/2019 SUBJECTIVE: Events noted over the weekend. Admitted for left lower lobe pneumonia, asking for more pain medicine and the patient was treated outpatient. PHYSICAL EXAMINATION: Temperature is 97 degrees, pulse 76. Vitals are stable. General: Morbidly obese. HEENT: Within normal limits. Lungs: Crackles in the left base. PICC line on the right side noted. Heart: Distant heart sounds. Abdomen: Belly is soft, nontender, obese. Extremities: Bilateral knee scars present. No peripheral edema. INVESTIGATIONS: Normal white cell count. Chest x-ray left lower lobe infiltrate. ASSESSMENT AND PLAN: 1. Left lower lobe pneumonia. 2. Morbid obesity. 3. Poor IV access. 4. History of pulmonary embolism. PLAN OF CARE: 1. Discontinue Percocet, changing to Tramadol. 2. Continue IV fluids. 3. IV Levaquin. 4. Incentive spirometry. 5. Gastrointestinal prophylaxis with IV Protonix. 6. Continue home medications and repeat the chest x-ray in the morning. 7. Pneumococcal vaccine 23 was given 2018. We will schedule for Prevnar 13 before discharge. LEVEL OF DOCUMENTATION: 35 minutes. cc: Nate Schulte MD
[2019-12-22] MEDS: DUONEB (A & A) INH SCH ×6 (03:41→23:20)
[2019-12-22] MEDS: PHENERGAN IV PRN ×3 (04:01→22:02)
[2019-12-22] MEDS: ULTRACET 37.5MG/325MG PO PRN ×4 (04:01→22:01)
--- NOTE | 2019-12-22 08:18 | Diag Imaging Result Doc PS360 ---
EXAM: CHEST-2 VIEWS HISTORY: hypoxia TECHNIQUE: Two views COMPARISON: 12/21/2019 FINDINGS: There are tiny pleural effusions. No cardiomegaly. Small infiltrates in the left lung base remain. No change in the right-sided PICC line. IMPRESSION: Stable chest Electronically signed by Lobo Mccall 12/22/2019 8:16 AM
[2019-12-22] MEDS: FLOMAX PO SCH (08:36)
[2019-12-22] MEDS: ELIQUIS PO SCH ×2 (08:36→22:01)
[2019-12-22] MEDS: ROBITUSSIN-DM PO PRN ×2 (11:11→17:07)
[2019-12-22] MEDS: NS 1,000 ML IV SCH (11:56)
[2019-12-22] MEDS: LEVAQUIN 750 MG/D5W 750 MG/150 ML IVPB IV SCH (12:16)
[2019-12-22] MEDS: PROTONIX IV SCH (12:16)
[2019-12-22] MEDS ORDERED: FENTANYL ONE (13:14)
[2019-12-22] MEDS: SEROQUEL PO SCH (22:01)
[2019-12-22] MEDS: DESYREL PO SCH (22:01)
[2019-12-22] MEDS: NEURONTIN PO SCH (22:05)
--- NOTE | 2019-12-22 22:14 | PROGRESS NOTE ---
DATE: 12/22/2019 SUBJECTIVE: The patient has been asking for more pain medicine. At this time, chest x-ray was stable. She has some crackles. PHYSICAL EXAMINATION: Vital signs: Temperature is 98 degrees. Vitals are stable. HEENT: Within normal limits. Neck: Supple. Chest: Crackles in the left base. Heart: Sounds are regular. Abdomen: Belly is soft, nontender. IMAGING: Chest x-ray: Left lower lobe infiltrate. ASSESSMENT AND PLAN: 1. Left lower lobe pneumonia. Not getting any better on Levaquin. We will add Zosyn. 2. For pain control, she is high risk and will discuss with non-narcotics Ultracet and for cough, Tessalon, guaifenesin, and Tussionex incentive spirometry. 3. History of pulmonary embolism on new oral anticoagulants. Continue present treatment. LEVEL OF DOCUMENTATION: [25] cc: Nate Schulte MD MTDD
[2019-12-23] MEDS: ZOSYN 3.375 GM in NS 50 ML IV SCH ×4 (03:25→20:27)
[2019-12-23] MEDS: DUONEB (A & A) INH SCH ×5 (04:03→20:42)
[2019-12-23] MEDS: NS 1,000 ML IV SCH ×2 (04:21→12:28)
[2019-12-23] MEDS: ULTRACET 37.5MG/325MG PO PRN ×2 (05:35→11:41)
[2019-12-23] MEDS: PHENERGAN IV PRN ×2 (05:36→11:41)
[2019-12-23] MEDS: ROBITUSSIN-DM PO PRN ×3 (08:31→20:23)
[2019-12-23] MEDS: ELIQUIS PO SCH ×2 (08:31→20:26)
[2019-12-23] MEDS: FLOMAX PO SCH (08:31)
[2019-12-23] MEDS: PROTONIX IV SCH (11:41)
[2019-12-23] MEDS: LEVAQUIN 750 MG/D5W 750 MG/150 ML IVPB IV SCH (12:27)
[2019-12-23] MEDS: TESSALON PO PRN (13:59)
[2019-12-23] MEDS: DESYREL PO SCH (20:24)
[2019-12-23] MEDS: NEURONTIN PO SCH (20:24)
[2019-12-23] MEDS: SEROQUEL PO SCH (20:25)
--- NOTE | 2019-12-23 20:32 | PROGRESS NOTE ---
DATE: 12/23/2019 SUBJECTIVE: The patient complains of chronic pain, decreased cough. I explained the opioid risk, behavior. PHYSICAL EXAMINATION: Temperature is 97 degrees. Vitals are stable.HEENT: Within normal limits. Lungs: Decreased crackles on the left base. Heart: Sounds are regular. INVESTIGATIONS: None. ASSESSMENT AND PLAN: 1. Left lower lobe pneumonia, getting better after adding Zosyn and Levaquin. 2. Continue IV fluids. PICC line on the right side. 3. History of pulmonary embolus, on Eliquis and GI prophylaxis with IV Protonix. Incentive spirometry and if she continues to improve we will discharge on Saturday. LEVEL OF DOCUMENTATION: 35 minutes. cc: Nate Schulte MD
[2019-12-24] MEDS: PHENERGAN IV PRN ×4 (00:04→21:08)
[2019-12-24] MEDS: ULTRACET 37.5MG/325MG PO PRN ×4 (00:04→21:12)
[2019-12-24] MEDS: ROBITUSSIN-DM PO PRN ×4 (00:08→19:30)
[2019-12-24] MEDS: DUONEB (A & A) INH SCH ×6 (00:36→20:48)
[2019-12-24] MEDS: NS 1,000 ML IV SCH (03:51)
[2019-12-24] MEDS: ZOSYN 3.375 GM in NS 50 ML IV SCH ×4 (04:49→21:08)
[2019-12-24] MEDS: FLOMAX PO SCH (08:49)
[2019-12-24] MEDS: ELIQUIS PO SCH ×2 (08:49→21:08)
[2019-12-24] MEDS: TESSALON PO PRN ×3 (08:52→21:08)
[2019-12-24] MEDS: PROTONIX IV SCH (13:24)
[2019-12-24] MEDS: LEVAQUIN 750 MG/D5W 750 MG/150 ML IVPB IV SCH (13:24)
--- NOTE | 2019-12-24 19:50 | PROGRESS NOTE ---
DATE: 12/24/2019 SUBJECTIVE: The patient has continuous cough and congestion and pain on the left side. PHYSICAL EXAMINATION: Vital signs: Temperature is 97 degrees, pulse 69. Vitals are stable. HEENT: Exam within normal limits. Neck: Supple. Chest: Crackles in the left base. Heart: Sounds are regular. ASSESSMENT AND PLAN: 1. Left lower lobe pneumonia. Not getting better. We will do a CT of the chest tonight. Continue present treatment. Based on the CT, further recommendations will be followed. 2. Poor intravenous access. Peripherally inserted central catheter line on the right side, on intravenous fluids. 3. Symptomatic treatment for cough. LEVEL OF DOCUMENTATION: 25 minutes. cc: Nate Schulte MD
--- NOTE | 2019-12-24 20:35 | Diag Imaging Result Doc PS360 ---
EXAM: CT THORAX W/O CONTRAST INDICATION: LLL PNA TECHNIQUE: This exam was performed using automated exposure control, adjustment of mA or kV according to patient size, and/or use of iterative reconstruction technique. COMPARISON: 01/01/2018 FINDINGS: There is a very small groundglass consolidation at the right lung apex suggesting mild focal pneumonitis. There is bibasilar subsegmental atelectasis and there is probably mild superimposed infiltrate at the left lung base posteriorly. There is trace pleural fluid at the right lung base. There is no pneumothorax. There are calcified mediastinal and right hilar lymph nodes indicating prior granulomatous disease. There is no cardiomegaly. Limited views of the upper abdomen are essentially unremarkable. There is no evidence of acute osseous abnormality. IMPRESSION: 1.Mild focal groundglass infiltrate at the right lung apex. 2.Bibasilar mild subsegmental atelectasis with likely superimposed mild infiltrate at the left lung base. Electronically signed by Naif Lala 12/24/2019 8:32 PM
[2019-12-24] MEDS: SEROQUEL PO SCH (21:08)
[2019-12-24] MEDS: NEURONTIN PO SCH (21:08)
[2019-12-24] MEDS: DESYREL PO SCH (21:09)
[2019-12-25] MEDS: DUONEB (A & A) INH SCH ×4 (00:24→11:14)
[2019-12-25] MEDS: ZOSYN 3.375 GM in NS 50 ML IV SCH ×2 (03:00→08:17)
[2019-12-25] MEDS: ULTRACET 37.5MG/325MG PO PRN ×2 (03:40→10:16)
[2019-12-25] MEDS: ROBITUSSIN-DM PO PRN ×2 (03:41→09:57)
[2019-12-25] MEDS: PHENERGAN IV PRN ×2 (03:41→10:17)
[2019-12-25] MEDS: NS 1,000 ML IV SCH ×2 (05:24→05:46)
[2019-12-25] MEDS: ELIQUIS PO SCH (08:17)
[2019-12-25] MEDS: FLOMAX PO SCH (08:17)
[2019-12-25] MEDS ORDERED: PREVNAR 13 IM ONE (08:25)
[2019-12-25] MEDS: PROTONIX IV SCH (12:06)
[2019-12-25] MEDS: SODIUM CHLORIDE 0.9% INJ SCH (12:06)
[2019-12-25] MEDS: LEVAQUIN 750 MG/D5W 750 MG/150 ML IVPB IV SCH (12:15)
[2019-12-25 12:20] VITALS: BP 135/76
--- NOTE | 2019-12-26 18:56 | DISCHARGE SUMMARY ---
ADMISSION DATE: 12/19/2019 DISCHARGE DATE: 12/25/2019 DISCHARGING DIAGNOSIS: Left lower lobe pneumonia. SECONDARY DIAGNOSES: 1. Deep venous thrombosis. 2. Neurogenic bladder with recurrent urinary tract infections. 3. Left heart catheterization negative by Dr. Whitley in 2018. 4. Metabolic syndrome. 5. Type 2 diabetes controlled with diet. 6. Hyperlipidemia. 7. Hypertension. 8. Sleep apnea. 9. History of pulmonary embolism on the right side,. 10. Status post bilateral knee replacements, back surgery, appendectomy, InterStim. 11. Failure of bladder incontinence procedures. 12. Peripherally inserted central catheter line on the right side. BRIEF HISTORY: Please see the H and P that was done by Dr. Verma. In brief, she is a 64-year- old white female basically admitted to the hospital with failure of outpatient treatment. Chest x- ray showed left lower lobe infiltrate. She had a persistent cough. Pharmacy reported she has high risk for opioid risk addiction. HOSPITAL COURSE: The patient has poor IV access. A PICC line was placed on the right side. Started on broad-spectrum IV antibiotics with Levaquin and Zosyn. She had a persistent cough, asking for pain medicines. I discontinued Percocet and Tussionex and changed to Tramadol along with Mucinex and Robitussin DM. Since she had persistent symptoms and coughing and pain on the left side. I did a CT of the chest. It showed residual infiltrate. No endobronchial lesions noted. LABS: CBC: White cell count 6.6, hematocrit 39, platelets 245. PT/INR is normal. SMA 7 is normal. ProBNP 720. Urinalysis is clear. Urine cultures were negative. CT of the chest: Mild ground-glass infiltrate in the right lung apex and mild infiltrate in the left lung DISCHARGING INSTRUCTIONS: 1. Pneumococcal vaccine 13 was given 12/25/2019. 2. Outpatient home antibiotics with Levaquin 500 daily for 7 days. 3. Seroquel 300 at bedtime, gabapentin 800, 2 tablets b.i.d., trazodone 150 at bedtime, Eliquis 5 mg p.o. b.i.d., Lasix 20 mg as needed, Protonix 40 mg daily, Mucinex 1 tablet p.o. b.i.d., 4. Incentive spirometry. 5. Follow up in my office in 10 days. cc: Nate Schulte MD
== END 2019-12-25 14:26 | disposition home or self-care (01) | DRG 195 ==
LOC: DIRADM → OBSVTOIN 10:43 → EDIPHOLD 12:17 → 3N 16:11
PROVIDERS: ADMIT Internal Medicine; ATTEND Internal Medicine